=== PATIENT | male | born 1995 | race Caucasian/White ===

== ENCOUNTER 2016-07-03 18:53 | Emergency (ER) | payer BC ==
[~2016-07-03] VITALS: Ht 182.8 cm; Wt 81.6 kg
[2016-07-03 19:30] LABS: BASO % 0.2 % (0.0-1.0); EOS # 0.1 10*3/uL (0.0-0.4); EOS % 0.4 % (1.0-4.0); HEMATOCRIT 42.6 % (42.0-52.0); LYMPH # 1.1 10*3/uL (1.3-4.4); LYMPH % 8.5 % (27.0-41.0); MEAN CORPUSCULAR HGB 32.1 pg (27.0-31.0); MEAN CORPUSCULAR HGB CONC 35.2 g/dl (33.0-37.0); MEAN PLATELET VOLUME 10.2 fl (9.6-12.3); MONO # 0.7 10*3/uL (0.1-1.0); MONO % 5.4 % (3.0-9.0); NEUT # 10.7 10*3/uL (2.3-7.9); NEUT % 85.2 % (47.0-73.0); PLATELET COUNT AUTOMATED 245 10*3/uL (130-400); RED BLOOD COUNT 4.68 10*6/uL (4.50-5.90); RED CELL DISTRI WIDTH 11.8 % (0-14.5); WHITE BLOOD COUNT 12.5 10*3/uL (4.8-10.8)
[2016-07-03 19:46] LABS: ALBUMIN 4.2 gm/dl (3.1-4.5); ALKALINE PHOSPHATASE 84 U/L (45-117); BILIRUBIN, TOTAL 0.6 mg/dl (0.2-1.0); CARBON DIOXIDE 25 mmol/L (21-32); CHLORIDE 101 mmol/L (98-107); EST GLOM FILT AFRICAN AMERICAN > 60 ml/min; GLUCOSE 110 mg/dL (65-99); SGOT/AST 26 IU/L (3-35); SGPT/ALT 23 U/L (12-78); SODIUM 137 mmol/L (136-145); TOTAL PROTEIN 8.4 gm/dL (6.4-8.2)
[2016-07-03 19:48] LABS: BUN 9 mg/dl (7-24)
[2016-07-03 20:41] LABS: BILIRUBIN NEGATIVE (NEGATIVE); BLOOD NEGATIVE (NEGATIVE); CLARITY CLEAR (CLEAR); COLOR YELLOW (YELLOW); GLUCOSE NEGATIVE (NEGATIVE); KETONE NEGATIVE (NEGATIVE); LEUKO ESTERASE NEGATIVE (NEGATIVE); NITRITE NEGATIVE (NEGATIVE); PROTEIN NEGATIVE (NEGATIVE); SPECIFIC GRAVITY <= 1.005 (1.005-1.030); UROBILINOGEN 0.2 E.U./dl (0.2-1.0)
[2016-07-03 21:00] LABS: BACTERIA TRACE; URINE REFLEX COMMENT NO (NO)
[2016-07-03] MEDS ORDERED: NORCO 5-325 TA1 EACH PO (21:23)
== END 2016-07-03 21:44 | disposition home or self-care (01) ==
LOC: ED 18:53
PROVIDERS: Nurse Practitioner Family
DX: S22.32XA Fracture of one rib, left side, initial encounter for closed fracture (principal); S92.152A Displaced avulsion fracture (chip fracture) of left talus, initial encounter for closed fracture; V86.99XA Unspecified occupant of other special all-terrain or other off-road motor vehicle injured in nontraffic accident, initial encounter; Y93.89 Activity, other specified; Y92.413 State road as the place of occurrence of the external cause; Y99.9 Unspecified external cause status

== ENCOUNTER → 2016-07-09 | Outpatient (CLI) | payer BC ==
[~2016-07-09] MED LIST: NORCO 5-325 TA1 EACH PO
== END | disposition home or self-care (01) ==
LOC: CT 14:44
DX: S99.911A Unspecified injury of right ankle, initial encounter (principal); M25.571 Pain in right ankle and joints of right foot; X58.XXXA Exposure to other specified factors, initial encounter; Y93.89 Activity, other specified; Y92.89 Other specified places as the place of occurrence of the external cause; Y99.8 Other external cause status

== ENCOUNTER 2018-05-20 13:33 | Emergency (ER) | payer BC ==
[~2018-05-20] VITALS: Ht 182.8 cm; Wt 81.6 kg
[2018-05-20] MEDS ORDERED: ZOFRAN4 MG PO (13:55)
[2018-05-20] MEDS ORDERED: AUGMENTIN 875875 MG PO (13:55)
== END 2018-05-20 15:41 | disposition home or self-care (01) ==
LOC: ED 13:33
DX: S60.351A Superficial foreign body of right thumb, initial encounter (principal); R03.0 Elevated blood-pressure reading, without diagnosis of hypertension; Z23 Encounter for immunization; X58.XXXA Exposure to other specified factors, initial encounter; Y93.89 Activity, other specified; Y92.098 Other place in other non-institutional residence as the place of occurrence of the external cause; Y99.8 Other external cause status

== ENCOUNTER → 2024-11-29 | Outpatient (CLI) | payer BC ==
[~2024-11-29] MED LIST changes: +AUGMENTIN 875875 MG PO; +ZOFRAN4 MG PO
== END | disposition home or self-care (01) ==
LOC: MRI 09:46
PROVIDERS: ATTEND Psychiatry & Neurology Neurology
DX: M47.22 Other spondylosis with radiculopathy, cervical region (principal); M25.78 Osteophyte, vertebrae; M48.02 Spinal stenosis, cervical region